=== PATIENT | female | born 1945 | race Caucasian/White ===

== ENCOUNTER 2021-07-29 15:23 | Observation (INO) ==
[2021-07-29] MEDS ORDERED: ZOFRAN INJ 4 MG VIAL IVP PRN (16:45)
[2021-07-29] MEDS ORDERED: MORPHINE SULFATE INJ 2 MG INJ IVP PRN (16:45)
[2021-07-29] MEDS ORDERED: VENTOLIN or PROAIR HFA IN PRN (16:50)
[2021-07-29] MEDS ORDERED: AMBIEN PO PRN (16:54)
[2021-07-29] MEDS ORDERED: LEVSIN/MAALOX/LIDOC VISC PO PRN (16:54)
[2021-07-29] MEDS ORDERED: NORCO 10/325 TAB PO PRN (16:54)
[2021-07-29] MEDS ORDERED: XANAX PO PRN (16:54)
--- NOTE | 2021-07-29 16:58 | DR.H&P ---
H&P - History & Physical for Day of: H&P Date: 07/29/21 - Chief Complaint Chief Complaint: SEVERE LOWER BACK PAIN, WEAKNESS, FALLS - History of Present Illness History of Present Illness: PT IS 76 WF DIRECT ADMIT WITH INTRACTABLE LOWER BACK PAIN AFTER MULTIPLE FALLS SINCE WEAKNESS FROM COVID. PT HAD COVID IN MAY. PT HAD PMH OF COMPRESSION FRACTURE WITH KYPHO SEVERAL YEARS AGO AND IS NORMALLY CONTROLLED ON PAIN MEDICATION. PT HAS HAD UNSTEADY GAIT AND DEHYDATION. PT HAD IV NS LAST WEEK IN OFFICE AND MOST RECENTLY ON KEFLEX FOR INFECTED SKIN TEAR TO BILATERAL UPPER ARMS. PT HAS PMH OF COPD, PAD, HTN, AVEL, MDD, OA. PT ADMITTED FOR TREATMENT AND EVALUATION OF ACUTE ILLNESS - Past Medical History Past Medical History: Anxiety, Arthritis, COPD, Depression, GERD, Hypertension - Past Surgical History Surgical History: Ortho Surgery - Social History Does patient currently use any type of tobacco product: No Have you used tobacco products in the last 12 months: No Type of Tobacco Use: None Does any household member use tobacco: No Alcohol Use: None Drug Use: None Risks, benefits, and alternatives of opioids discussed: No - Review of Systems Constitutional: Weakness, Malaise Eyes: No Symptoms Reported ENT: No Symptoms Reported Respiratory: Shortness of Breath Cardiovascular: Palpitations, Light Headedness Gastrointestinal: Nausea, Constipation Genitourinary: No Symptoms Reported Musculoskeletal: Back Pain Skin: Bruising, Wound Neurological: Weakness Oriented: Normal Eyes: Normal Throat: Normal Respiratory: RLL Diminished, LLL Diminished Cardiovascular: Normal : Normal Auscultation: Bowel Sounds: Normal Palpation: Normal Tenderness: Normal Skin: Decreased Turgur Musculoskeletal: Back:Thoracic, Back:Lumbar, Tender, Motor Deficit, Sensory Deficit Psychiatric: Anxiety Mood Description: Anxious Affect: Anxious, Depressed Speech Pattern: Clear, Appropriate - Assessment/Plan (1) Intractable back pain Status: Acute Plan: ADMIT, CT C/T/ L SPINE ON ADMISSION. PAIN CONTROL, ADMISSION LABS AND CXR. RESP CONSULT, RESUME HOME MEDICATION. PT CONSULT, UA/UC ON ADMISSION. WOUND CARE TO SKIN TEARS (2) Dehydration Status: Acute (3) COVID-19 long hauler Status: Acute (4) COPD (chronic obstructive pulmonary disease) Status: Acute (5) Hypertension Status: Acute (6) GERD (gastroesophageal reflux disease) Status: Acute (7) PAD (peripheral artery disease) Status: Acute
[2021-07-29 17:04] LABS: BASOPHILS # (AUTO) 0.1 X10^3/uL (0.0-0.1); BASOPHILS % (AUTO) 0.8 % (0.2-1.0); EOSINOPHILS % (AUTO) 0.4 % (0.9-2.9); HEMATOCRIT 36.3 % (36.0-47.0); HEMOGLOBIN 12.4 g/dL (12.0-16.0); LYMPHOCYTES # (AUTO) 4.4 X10^3/uL (1.3-2.9); LYMPHOCYTES % (AUTO) 44.4 % (21.0-51.0); MEAN CORPUSCULAR HGB CONC 34.3 g/dL (33.0-35.0); MEAN CORPUSCULAR VOLUME 90.5 fL (80.0-100.0); MEAN PLATELET VOLUME 7.3 fL (7.4-11.0); MONOCYTES # (AUTO) 0.5 x10^3/uL (0.3-0.8); MONOCYTES % (AUTO) 4.6 % (0.0-13.0); NEUTROPHILS # (AUTO) 4.9 x10^3/uL (2.2-4.8); NEUTROPHILS % (AUTO) 49.8 % (42.0-75.0); RED BLOOD COUNT 4.01 X10^6/uL (3.5-5.4); RED CELL DISTRIBUTION WIDTH 17.1 % (11.6-16.5); WHITE BLOOD COUNT 9.9 X10^3/uL (3.6-10.0)
[2021-07-29] MEDS ORDERED: DUONEB 0.5 MG/3 MG (3 mL) NEB PRN (17:12)
[2021-07-29 17:16] LABS: ALANINE AMINOTRANSFERASE 27 Units/L (12-78); ALBUMIN 3.5 g/dL (3.4-5.0); ALKALINE PHOSPHATASE 92 Units/L (46-116); ASPARTATE AMINO TRANSFERASE 13 Units/L (15-37); BLOOD UREA NITROGEN 18 mg/dL (7-18); CALCIUM 9.2 mg/dL (8.5-10.1); CARBON DIOXIDE 29.3 mmol/L (21-32); CHLORIDE 98 mmol/L (98-107); COR NA(FOR HYPERGLY) 136 mmol/L (136-145); CREATININE 0.88 mg/dL (0.55-1.02); SODIUM 134 mmol/L (136-145); TOTAL PROTEIN 6.6 g/dL (6.4-8.2); eGFR NON BLACK RACES > 60 (>60)
--- NOTE | 2021-07-29 17:45 | CT ---
HISTORYHX FALL, INTRACTABLE BACK PAINSTUDYCERVICAL SPINE W/O CONCOMPARISONNone available.TECHNIQUEAxial non-contrast images of the cervical spine with coronal and sagittal reformats.Radiation dose: 296.20 mGy-cm total DLPFINDINGSNo acute fracture.Normal alignment.Vertebral body heights maintained.Pre-vertebral soft tissues are normal.No clinically significant spinal stenosis.Multilevel neural foraminal narrowing.Multilevel mild-moderate degenerative disc disease throughout the cervical spine.Moderate degenerative changes at the atlantoaxial interval.Multilevel mild-moderate facet and mild-moderate uncovertebral degenerative changes.Soft tissues are unremarkable.Paraseptal and centrilobular emphysema.IMPRESSION1. No acute abnormality identified.2. Multilevel degenerative disc and joint changes resulting in multilevel neural foraminal narrowing.Electronically signed by: Og Braun (Jul 29, 2021 17:43:25)
--- NOTE | 2021-07-29 17:49 | CT ---
HISTORYHX FALL, INTRACTABLE BACK PAINSTUDYLUMBAR SPINE W/O CONCOMPARISONNone available.TECHNIQUENon-contrast axial CT images of the lumbar spine with sagittal and coronal reformats.Radiation dose: 1196.10 mGy-cm total DLP.FINDINGSVertebral body height loss at L2 status post vertebroplasty.Diffuse osteopenia.Fusion of the posterior elements and vertebral body at L4-L5.Multilevel [id number] degenerative disc disease.No significant central canal stenosis.No significant neuroforaminal narrowing.No fracture identified.Imaged portion of the intra-abdominal structures are unremarkable.Soft tissues are unremarkable.IMPRESSION1. No acute abnormality identified.2. Chronic changes as discussed above.Electronically signed by: Og Braun (Jul 29, 2021 17:48:16)
--- NOTE | 2021-07-29 17:49 | CT ---
HISTORYHX FALL, INTRACTABLE BACK PAINSTUDYTHORACIC SPINE W/O CONCOMPARISONNone available.TECHNIQUENon-contrast axial CT images of the thoracic spine with sagittal and coronal reformats.Radiation dose: 887.30 mGy-cm total DLP.FINDINGSStatus post vertebroplasty with height loss at L2.Otherwise, vertebral body heights are maintained with normal alignment.Multilevel [id number]-[id number] degenerative disc disease.No significant central canal stenosis.No significant neuroforaminal narrowing.No fracture identified.Imaged portion of the intra-abdominal structures are unremarkable.Soft tissues are unremarkable.Centrilobular and paraseptal emphysema.Chronic interstitial changes at the periphery of the upper and lower lobes.IMPRESSION1. No acute abnormality identified.2. Chronic changes as discussed above.Electronically signed by: Og Braun (Jul 29, 2021 17:46:23)
--- NOTE | 2021-07-29 18:27 | RAD ---
HISTORYHX FALL, INTRACTABLE BACK PAINSTUDYCHEST, 1 VIEWCOMPARISONNone availableTECHNIQUEChest radiographic imaging, AP portable projection, 1 imageFINDINGSNo cardiomegaly.No focal airspace disease.No pleural effusion.No pneumothorax.No acute osseous abnormality.Vertebroplasty changes L2.IMPRESSIONNo imaging findings of acute cardiopulmonary disease.Electronically signed by: Og Braun (Jul 29, 2021 18:26:00)
[2021-07-29] MEDS ORDERED: KLOR-CON PO PRN (19:11)
[2021-07-29] MEDS ORDERED: MIRALAX POWDER (1 DOSE 17 G) ONE (19:24)
[2021-07-29] MEDS ORDERED: NS 1,000 ML IV 1,000 ML ONE (19:39)
[2021-07-29] MEDS ORDERED: NS 1,000 ML IV 1,000 ML IV SCH (20:00)
[2021-07-29] MEDS: K-DUR TAB 20 MEQ PO PRN (20:32)
[2021-07-29] MEDS ORDERED: MIRALAX POWDER (1 DOSE 17 G) PO SCH (21:00)
[2021-07-29 23:27] LABS: BILIRUBIN,URINE NEGATIVE (NEGATIVE); BLOOD/HEMOGLOBIN,URINE NEGATIVE (NEGATIVE); GLUCOSE, URINE 2+ (NEGATIVE); KETONES,URINE NEGATIVE (NEGATIVE); LEUKOCYTE ESTERASE ,URINE NEGATIVE (NEGATIVE); NITRITES,URINE NEGATIVE (NEGATIVE); PROTEIN,URINE NEGATIVE (NEGATIVE); UROBILINOGEN,URINE NORMAL (NORMAL)
[2021-07-29 23:33] LABS: APPEARANCE,URINE CLEAR (CLEAR); COLOR,URINE STRAW (YELLOW)
[2021-07-30] MEDS: K-DUR TAB 20 MEQ PO PRN (08:44)
[2021-07-30] MEDS ORDERED: PROTONIX TAB 40 MG PO SCH (09:00)
[2021-07-30] MEDS ORDERED: LINZESS PO SCH (09:00)
[2021-07-30] MEDS ORDERED: CELEXA PO SCH (09:00)
[2021-07-30] MEDS ORDERED: WELLBUTRIN XL 300 MG (DAILY) PO SCH (09:00)
[2021-07-30 10:45] LABS: BASOPHILS % (AUTO) 0.5 % (0.2-1.0); EOSINOPHILS % (AUTO) 0.3 % (0.9-2.9); HEMATOCRIT 34.1 % (36.0-47.0); HEMOGLOBIN 11.7 g/dL (12.0-16.0); LYMPHOCYTES # (AUTO) 2.8 X10^3/uL (1.3-2.9); LYMPHOCYTES % (AUTO) 42.2 % (21.0-51.0); MEAN CORPUSCULAR HGB CONC 34.2 g/dL (33.0-35.0); MEAN CORPUSCULAR VOLUME 90.7 fL (80.0-100.0); MEAN PLATELET VOLUME 7.2 fL (7.4-11.0); MONOCYTES # (AUTO) 0.3 x10^3/uL (0.3-0.8); MONOCYTES % (AUTO) 4.8 % (0.0-13.0); NEUTROPHILS # (AUTO) 3.5 x10^3/uL (2.2-4.8); NEUTROPHILS % (AUTO) 52.2 % (42.0-75.0); RED BLOOD COUNT 3.76 X10^6/uL (3.5-5.4); WHITE BLOOD COUNT 6.6 X10^3/uL (3.6-10.0)
[2021-07-30] MEDS ORDERED: LOVENOX INJ 40 MG SYR SC SCH (11:00)
[2021-07-30 11:02] LABS: ALANINE AMINOTRANSFERASE 23 Units/L (12-78); ALBUMIN 3.3 g/dL (3.4-5.0); ALKALINE PHOSPHATASE 83 Units/L (46-116); ASPARTATE AMINO TRANSFERASE 11 Units/L (15-37); BLOOD UREA NITROGEN 15 mg/dL (7-18); CALCIUM 9.2 mg/dL (8.5-10.1); CARBON DIOXIDE 31.7 mmol/L (21-32); CHLORIDE 102 mmol/L (98-107); CKMB % 3.6 % (<4); COR CA(FOR HYPOALB) 9.8 mg/dL (8.5-10.1); COR NA(FOR HYPERGLY) 139 mmol/L (136-145); CREATINE KINASE 31 Units/L (26-192); CREATINE KINASE MB 1.1 ng/mL (0-4.0); CREATININE 0.75 mg/dL (0.55-1.02); SODIUM 137 mmol/L (136-145); TOTAL PROTEIN 6.3 g/dL (6.4-8.2); eGFR NON BLACK RACES > 60 (>60)
[2021-07-30 12:47] LABS: ABG BASE EXCESS 5.9 mmol/L (-2.0-2.0); ABG HCO3 31.2 mmol/L (22-26)
[2021-07-30 14:24] VITALS: BP 167/70
== END 2021-07-30 16:11 | disposition home health service (06) ==
LOC: MED/SURG
PROVIDERS: ADMIT Internal Medicine; ATTEND Internal Medicine